=== PATIENT | male | born 1960 | race Caucasian/White ===

== ENCOUNTER 2019-11-30 11:15 | Inpatient (IN) | payer MEDICAID ==
[2019-11-30] VITALS (10 sets, daily range): BP systolic 90–149; BP diastolic 46–77; Ht 175.3 cm; Wt 68.2 kg
[~2019-11-30] VITALS: Ht 175.3 cm; Wt 68.2 kg
--- NOTE | ~2019-11-30 | HEMODYNAMI ---
PATIENT:GENARO GARCES MEDICAL RECORD: [id number] : 62 LOCATION:[facility].[address] [facility]# [id number] ADMISSION DATE: 11/30/19 Generatedon:12/01/201912:38 Patient name: GENARO GARCES Patient #: [id number] SSN: : 1960 Date of study: 12/01/2019 Page: Of Hemodynamic Procedure Report Patient Data Patient Demographics Procedure consent was obtained First Name: GENARO Gender: Male Last Name: DEZ : 1960 Patient #: [id number] Age: 59 year(s) Race: Unknown Additional ID: [id number] Contact details [address]: [address] [place] [address] State: [place] City: [place] Zip code: [address] Past Medical History Allergies: No known allergies Admission Admission Data Admission Date: 11/30/2019 Admission Time: 19:48 Room #: D2117 Lab Results Lab Result Date: 12/01/2019 Lab Result Time: 0:00 Biochemistry Name Units Result Min Max BUN mg/dl 32 --(----)-* 7 18 Creatinine mg/dl 1.3 --(---*)-- 0.6 1.3 eGFR ml/min 60 *-(----)-- 90 120 NONAFRICAN CBC Name Units Result Min Max Hematocrit % 44.8 --(*---)-- 42 54 Hemoglobin g/dl 14.8 --(-*--)-- 13.5 17.5 Procedure Procedure Types Cath Procedure Diagnostic Procedure LHC LHC w/Coronaries Procedure Description Procedure Date Procedure Date: 12/01/2019 Procedure Start Time: 12:24 Procedure End Time: 12:34 Procedure Staff Name Function Refugio Duval MD Performing Physician Ginette Wray RT Monitor Radha Nunez RT Scrub Qamar Verduzco RN Nurse Procedure Data Cath Procedure Fluoroscopy Diagnostic fluoroscopy Total fluoroscopy Time: 1 time: 1 min min Diagnostic fluoroscopy Total fluoroscopy dose: 91 dose: 91 mGy mGy Contrast Material Contrast Material Type Amount (ml) Isovue 300 58 Entry Location Entry Primary Successful Side Size Upsize Upsize Entry Closure Succes sful Closure Location (Fr) 1 (Fr) 2 (Fr) Remarks Device Remarks Femoral Right 5 Fr Exoseal artery Estimated blood loss: 5 ml Diagnostic catheters Device Type Used For End Catheter Placement MULTIPACK Pigtail 5 Fr Procedure catheter MULTIPACK JL 4.0 5Fr Procedure catheter MULTIPACK 3DRC 5Fr Procedure catheter Procedure Complications No complications Procedure Medications Medication Administration Route Dosage 0.9% NaCl I.V. 100 ml/hr Oxygen etCO2 Nasal cannula 2 l/min Heparin Flush Bag added to field 2 bags (1000units/500ml NS) Lidocaine 2% added to field 20 Cardizem 3 mg/hr (125mg/125ml NS) Versed I.V. 2 mg Fentanyl I.V. 100 mcg Cardizem 3 mg/hr (125mg/125ml NS) Fentanyl I.V. 50 mcg Hemodynamics Rest HGB: 14.8 (g/dl) Heart Rate: 109 (bpm) Snapshots Pre Cath Intra NCS Post Cath Vital Signs Time Heart Resp SPO2 etCO2 NIBP (mmHg) Rhythm Pain Sedation Rate (ipm) (%) (mmHg) Status Level (bpm) 12:03:33 110 19 90 0 139/104(125) A-Fib 0 (11) 10(A) , No pain 12:07:36 107 20 0 15.9 128/101(122) A-Fib 0 (11) 10(A) , No pain 12:11:36 137 28 95 12.1 126/103(114) A-Fib 0 (11) 10(A) , No pain 12:15:36 98 19 95 16.6 120/104(116) A-Fib 0 (11) 10(A) , No pain 12:19:33 93 17 92 20.4 122/91(115) A-Fib 0 (11) 10(A) , No pain 12:24:20 110 16 92 21.9 113/84(106) A-Fib 0 (11) 9(A) , No pain 12:28:13 122 15 91 26.5 123/95(101) A-Fib 0 (11) 9(A) , No pain 12:32:11 117 14 91 24.9 117/97(108) A-Fib 0 (11) 9(A) , No pain Medications Time Medication Route Dose Verified Delivered Reason Notes E ffectiveness by by 12:12:13 0.9% NaCl I.V. 100 Qamar Qamar Per ml/hr Luba Verduzco physician RN RN 12:12:21 Oxygen etCO2 2 Qamar Qamar for low 02 Nasal l/min Lorigan Lorigan sats cannula RN RN 12:12:31 Heparin Flush added to 2 Qamar Qamar used for Bag field bags Lorigan Lorigan procedure (1000units/500ml RN RN NS) 12:12:41 Lidocaine 2% added to 20ml Qamar Qamar for local field vial Lorigan Lorigan anesthetic RN RN 12:13:15 Cardizem I.V. drip 3 Qamar Qamar for (125mg/125ml NS) (infusing mg/hr Lorigan Lorigan arrhythmia upon RN RN arrival) 12:25:04 Versed I.V. 2 mg Qamar Qamar for Lorigan Lorigan sedation RN RN 12:25:12 Fentanyl I.V. 100 Qamar Qamar for mcg Lorigan Lorigan sedation RN RN 12:25:43 Cardizem I.V. drip 3 Qamar Qamar for (125mg/125ml NS) turned mg/hr Lorigan Lorigan arrhythmia off RN RN 12:26:20 Fentanyl I.V. 50 Qamar Qamar for mcg Lorigan Lorigan sedation RN outpatient therapist Log Time Note 11:37:39 Informed consent obtained and on chart 11:37:59 Time tracking: Regular hours (M-F 7:00 - 5:00) 11:38:01 Plan of Care:Hemodynamics will remain stable., Cardiac rhythm will remain stable., Comfort level will be maintained., Respiratory function will remain adequate., Patient/ family verbilizes understanding of procedure., Procedure tolerated without complication., Recovers from procedure without complications.. 11:38:04 Procedure Status Urgent Heart Cath (IP). 11:41:07 H&P Date Dictated: 12/01/2019 New H&P dictated by physician.. 11:46:38 Lab Result : BUN 32 mg/dl 11:46:38 Lab Result : Creatinine 1.3 mg/dl 11:46:38 Lab Result : eGFR NONAFRICAN 60 ml/min 11:46:38 Lab Result : Hemoglobin 14.8 g/dl 11:46:38 Lab Result : Hematocrit 44.8 % 11:48:37 Risk of Mortality: .1 11:48:40 Risk of blood transfusion: .4 11:48:42 Risk of TERRI: .4 11:48:47 Stress Test: no; N/A ? 11:48:55 Qamar Verduzco RN sent for patient. Start room use. 12:02:28 Patient received from Med II to CCL 3 Alert and oriented. Tansferred to table in Supine position. 12:02:29 Warm blankets applied, and britt hugger turned on for patient comfort. 12:02:30 Correct patient and procedure confirmed by team. 12:02:31 ECG and BP/O2 sat monitors applied to patient. 12:02:31 Vital chart was started 12:02:33 Baseline sample Acquired. 12:02:38 Rhythm: atrial fibrillation 12:02:39 Full Disclosure recording started 12:02:40 Pre-procedure instructions explained to patient. 12:02:41 Pre-op teaching completed and patient verbalized understanding. 12:02:45 Family in patients room. 12:02:46 Patient NPO since Midnight. 12:02:51 Patient allergic to No known allergies 12:03:01 Is the patient allergic to Iodine/contrast media? No. 12:03:03 Is patient on blood thinner?Yes 12:03:06 ACC The patient was administered the following blood thiners within the last 24 hours: Xarelto 12:03:08 Patient diabetic? No. 12:03:11 Previous problem with sedation/anesthesia? No ? 12:03:13 Snore? Yes 12:03:14 Sleep apnea? No 12:03:15 Deviated septum? No 12:03:16 Opens mouth fully? Yes 12:03:16 Sticks out tongue? Yes 12:03:18 Airway obstruction? No ? 12:03:21 Dentures? No ? 12:03:30 IV right antecubital D/C'd due to infiltration. 12:03:42 IV started by Qamar Verduzco RN inleft antecubital with a 22 gauge IV catheter with 0.9% NaCl at KVO. 12:03:48 Pre procedure: right dorsailis pedis pulse 1+ Palpable, but thready & weak; easily obliterated 12:03:51 Patient pain scale 0/10 ?. 12:03:55 Lab results completed and on chart. 12:04:00 Right groin area was prepped with chlora-prep and draped in sterile fashion 12:04:09 RADIAL PULSE TOO WEAK. 12:04:15 Alarms reviewed by R. N. 12:04:16 Sharps counted by scrub and verified by R.N. 12:04:18 Use device set Femoral Dx 12:04:18 ACIST Syringe (03016) opened to sterile field. 12:04:19 Bag Decanter (2002S) opened to sterile field. 12:04:20 ACIST Hand Control (07855) opened to sterile field. 12:04:21 ACIST Manifold (52029) opened to sterile field. 12:04:21 Tegaderm 4 x 4 (1626W) opened to sterile field. 12:04:22 Medline Cath Pack (UKSL40188) opened to sterile field. 12:04:23 DIAGNOSTIC Multipack 5Fr catheter set (IF2332) opened to sterile field. 12:04:24 SHEATH 5FR [place] (GDH378) opened to sterile field. 12:04:24 EMERALD Guide Wire (967-856) opened to sterile field. 12:12:13 0.9% NaCl 100 ml/hr I.V. was administered by Qamar Verduzco RN; Per physician; Verbal order read back and verified. 12:12:21 Oxygen 2 l/min etCO2 Nasal cannula was administered by Qamar Verduzco RN; for low 02 sats; Verbal order read back and verified. 12:12:31 Heparin Flush Bag (1000units/500ml NS) 2 bags added to field was administered by Qamar Verduzco RN; used for procedure; Verbal order read back and verified. 12:12:41 Lidocaine 2% 20ml vial added to field was administered by Qamar Verduzco RN; for local anesthetic; Verbal order read back and verified. 12:13:15 Cardizem (125mg/125ml NS) 3 mg/hr I.V. drip (infusing upon arrival) was administered by Qamar Verduzco RN; for arrhythmia; Verbal order read back and verified. 12:18:59 Zero performed for pressure channel P1 12:22:33 --------ALL STOP TIME OUT------ 12:22:33 Final Timeout: patient, procedure, and site verified with staff and physician. All members of the team are in agreement. 12::35 Right groin site verified by team. 12::40 Fire Safety Assessment: A--An alcohol-based skin anteseptic being used preoperatively., C--Open oxygen or nitrous oxide is being used., D--An ESU, laser, or fiber-optic light is being used. 12::45 Physical assessment completed. ASA score P 2 - A patient with mild systemic disease as per Refugio Duval MD. 12:22:48 2) 60-89 Mildly reduced kidney function, and other findings (as for stage 1) point to kidney disease. 12:22:51 Maximum allowable contrast dose (3.7 X eGFR X 0.75)167 ml. 12:22:54 Sedation plan: IV Moderate Sedation Medication:Versed, Fentanyl 12:24:16 Procedure started. 12:24:45 Local anesthetic to right femoral artery with Lidocaine 2% by Refugio Duval MD.INITIAL ACCESS ONLY 12:24:59 A 5 Fr sheath was inserted into the Right Femoral artery 12:25:04 Versed 2 mg I.V. was administered by Qamar Verduzco RN; for sedation; Verbal order read back and verified. 12:25:12 Fentanyl 100 mcg I.V. was administered by Qamar Verduzco RN; for sedation; Verbal order read back and verified. 12:25:39 A MULTIPACK Pigtail 5 Fr catheter was advanced over the wire and used for Procedure. 12:25:43 Cardizem (125mg/125ml NS) 3 mg/hr I.V. drip turned off was administered by Qamar Verduzco RN; for arrhythmia; Verbal order read back and verified. 12:25:44 LV gram done using VASQUEZ 12::46 Injector settings: Ml/sec: 10, Volume: 20, 12:26:01 EF : 30 % 12:26:06 Catheter removed. 12:26:11 A MULTIPACK JL 4.0 5Fr catheter was advanced over the wire and used for Procedure. 12:26:20 Fentanyl 50 mcg I.V. was administered by Qamar Verduzco RN; for sedation; Verbal order read back and verified. 12:27:10 LCA angiography performed. 12:27:40 Catheter removed. 12:27:46 A MULTIPACK 3DRC 5Fr catheter was advanced over the wire and used for Procedure. 12:28:35 RCA angiography performed. 12::36 Catheter removed. 12::43 EXOSEAL 5Fr (EX500) opened to sterile field. 12:29:04 Sheath removed intact; hemostasis achieved with Exoseal to the Right Femoral artery. 12:29:12 Procedure ended.(Physican Out) 12:30:14 Fluoroscopy time 01.00 minutes. 12:30:18 Fluoroscopy dose: 91 mGy 12:30:18 Flurop Dose total: 91 12:30:22 Dose Area Product 775 mGy/cm. 12:30:26 Contrast amount:Isovue 300 58ml. 12:30:28 Maximum allowable dose exceeded? No. 12:30:29 Sharps counted by scrub and verified by R.N. 12:30:31 Post-op/insertion site Right Femoral artery dressed using a 4 x 4 and Tegaderm. 12:30:34 Post-procedure physical assessment completed. ASA score P 2 - A patient with mild systemic disease as per Refugio Duval MD. 12:30:37 Post procedure rhythm: atrial fibrillation 12:30:40 Estimated blood loss: 5 ml 12:30:41 Post procedure instruction explained to patient.Patient verbalizes understanding. 12:30:42 Patient needs reinforcement of post procedure teaching. 12:31:44 Procedure and supply charges have been captured, reviewed, submitted and are correct. 12::46 Procedure Complication : No complications 12:31:49 [facility] Findings: mild to moderate CAD (<70%) 12:31:51 Operative report dictated upon procedure completion. 12:31:51 See physician's report for complete and final results. 12:34:15 Vital chart was stopped 12:34:18 Report given to Med II. 12:34:21 Patient transfered to Med II with Bed. 12:34:23 Procedure ended. 12::23 Full Disclosure recording stopped 12:34:28 End room use (Document Last) 12:37:24 End room use (Document Last) 12:38:25 End room use (Document Last) Device Usage Item Name Manufacture Quantity Catalog Hospital Part Current Minimal L ot# / Number Charge Number Stock Stock Serial# Code [place] [address] 24253 216279 804005 [id number] 20 Syringe Medical (46438) Systems Inc Bag Microtek 1 207241 60136 735416 5 Decanter Medical Inc. () ACIST Hand Acist 1 10710 982041 070974 627053 5 Control Medical (14695) Systems Inc ACIST Acist 1 67801 033807 625251 937765 5 Manifold Medical (38373) Systems Inc Tegaderm 4 3M 1 1626W 713026 099109 226605 5 x 4 (1626W) Medline Medline 1 [id number] 096192 54184 653874 5 Cath Pack ([id number]) DIAGNOSTIC Cardinal 1 CF2562 513762 16328 175377 30 Multipack Health 5Fr catheter set (NE5183) SHEATH 5FR Terumo 1 LKY596 336806 417851 113633 5 [place] (GDC312) EMERALD Cardinal 1 502-000 771049 938346 584566 5 Guide Wire Health (418-851) MULTIPACK Cardinal 1 310759 5 Pigtail 5 Health Fr catheter MULTIPACK Cardinal 1 139429 5 JL 4.0 5Fr Health catheter MULTIPACK Cardinal 1 091426 5 3DRC 5Fr Health catheter EXOSEAL 5Fr Cardinal 1 EX500 420846 963382 009558 10 (EX500) Health Signature Audit [place] Stage Time Signature Unsigned Intra-Procedure 12/01/2019 Ginette Wray 12:37:24 PM RT(R) Intra-Procedure 12/01/2019 Qamar 12:38:25 PM Luba DUNCAN Intra-Procedure 12/01/2019 Refugio Duval 12:38:41 PM [place] [id number] [place] [address]
[2019-11-30] MEDS ORDERED: PAXIL10 MG PO (11:22)
[2019-11-30] MEDS ORDERED: XARELTO20 MG PO (11:27)
[2019-11-30] MEDS ORDERED: LISINOPRIL10 MG PO (11:33)
[2019-11-30] MEDS ORDERED: PROTONIX20 MG PO (11:33)
[2019-11-30] MEDS ORDERED: KLOR-CON M2020 MEQ PO (11:34)
[2019-11-30] MEDS ORDERED: ALDACTONE25 MG PO (11:34)
[2019-11-30] MEDS ORDERED: LANOXIN125 MCG PO (11:35)
[2019-11-30 12:12] LABS: BASOPHILS 0.3 % (0-2); CALC OSMOLALITY 280 mosm/kg (275-300); CALCIUM 7.9 mg/dL (8.5-10.1); CARBON DIOXIDE 23.8 mmol/L (21.0-32.0); CHLORIDE - SERUM 104 mmol/L (98-107); CREATININE - SERUM 1.3 mg/dL (0.6-1.3); GLUCOSE 102 mg/dL (74-106); HEMATOCRIT 44.8 % (42.0-54.0); HEMOGLOBIN 14.8 g/dL (13.5-17.5); IMMATURE GRANULOCYTES 0.3 % (0-5); LYMPHOCYTES 20.2 % (15-50); MCH 30.7 pg (26.0-34.0); MCV 92.9 fL (80.0-100.0); MEAN PLATELET VOLUME 13.1 fL (7.4-10.4); MONOCYTES 11.6 % (2-11); NEUTROPHILS 66.6 % (40-80); PLATELET COUNT 115 10x3/uL (130-400); RBC 4.82 10x6/uL (4.20-6.10); RDW 16.5 % (11.5-14.5); SODIUM 137 mmol/L (136-145); UREA NITROGEN 32 mg/dL (7-18); WBC 7.7 10x3/uL (4.8-10.8); eGFR NON AFRICAN AMERICAN 60 mL/min (90-120)
[2019-11-30 12:31] LABS: APTT 30.3 SECONDS (22.8-39.4); INR 1.47 (0.85-1.17); PROTIME 17.2 SECONDS (11.6-15.0)
[2019-11-30 12:34] LABS: ALKALINE PHOSPHATASE 67 U/L (46-116); ALT (SGPT) 190 U/L (10-68); BILIRUBIN - TOTAL 1.49 mg/dL (0.2-1.3); CKMB 9.3 U/L (0.0-3.6); CREATINE KINASE 400 UL (21-232); MAGNESIUM - SERUM 2.2 mg/dL (1.8-2.4); PROTEIN - SERUM 5.8 g/dL (6.4-8.2)
[2019-11-30 12:42] LABS: TROPONIN-I 1.569 ng/mL (0.000-0.060)
--- NOTE | 2019-11-30 13:00 | NUR ---
CASE MANAGEMENT STATED HOLDING PT D/T NO BEDS AVAILABLE AT THIS TIME
--- NOTE | 2019-11-30 13:21 | NUR ---
SISTER TAKING PT INDY HOME WITH HER AND LEAVING PT CELL PHONE
--- NOTE | 2019-11-30 14:29 | NUR ---
PT RESTING NO DISTRESS NOTED.
--- NOTE | 2019-11-30 14:59 | NUR ---
URINAL GIVEN TO PT
--- NOTE | 2019-11-30 15:19 | NUR ---
PT BLOOD PRESSURE 90/63 HR 77. DECREASED CARDIZEM TO 5MG/HR
--- NOTE | 2019-11-30 15:53 | NUR ---
CARDIZEM DECREASED TO 3MG/HR D/T HR 81 BP 81/54
--- NOTE | 2019-11-30 16:56 | NUR ---
CALLED TO CHECK ON STATUS OF ROOM 211 BEING CLEANED AND WAS TOLD EVS HAS NOT STARTED ON CLEANING ROOM YET.
--- NOTE | 2019-11-30 17:40 | NUR ---
TRIED TO CALL REPORT WAS TOLD WOULD HAVE TO BE CALLED BACK
--- NOTE | 2019-11-30 18:45 | NUR ---
CARDIZEM STOPPED IN ED WHEN TRANSPORTED TO FLOOR. DRIP CONTINUED ON FLOOR
--- NOTE | 2019-11-30 18:53 | NUR ---
COMPUTER WILL NOT LET ME DEPART PT D/T PT HAS BEEN ADMITTED FOR SEVERAL HOURS WAITING ON BED.
--- NOTE | 2019-11-30 19:30 | NUR ---
WHEN DOING PATIENT MED. REC. PATIENT DISCLOSED THAT HE WAS ABLE TO GET IS MEDICATION FOR APPROX. A MONTH. HE WAS UNABLE TO DETERMINE WHEN THE LAST TIME HE TOOK IS MEDICATIONS.
[2019-11-30 21:39] LABS: CKMB 6.9 U/L (0.0-3.6); CREATINE KINASE 332 UL (21-232)
[2019-11-30 21:40] LABS: TROPONIN-I 1.706 ng/mL (0.000-0.060)
[2019-12-01] VITALS: BP 112/66
[2019-12-01 02:43] LABS: BASOPHILS 0.1 % (0-2); EOSINOPHILS 2.2 % (0-7); HEMATOCRIT 42.4 % (42.0-54.0); HEMOGLOBIN 14.1 g/dL (13.5-17.5); IMMATURE GRANULOCYTES 0.1 % (0-5); LYMPHOCYTES 26.8 % (15-50); MCH 30.8 pg (26.0-34.0); MCHC 33.3 g/dL (31.0-37.0); MCV 92.6 fL (80.0-100.0); MEAN PLATELET VOLUME 11.9 fL (7.4-10.4); MONOCYTES 11.3 % (2-11); NEUTROPHILS 59.5 % (40-80); PLATELET COUNT 116 10x3/uL (130-400); RBC 4.58 10x6/uL (4.20-6.10); RDW 16.7 % (11.5-14.5); WBC 7.3 10x3/uL (4.8-10.8)
[2019-12-01 03:23] LABS: ALBUMIN 2.9 g/dL (3.4-5.0); ALKALINE PHOSPHATASE 80 U/L (46-116); ALT (SGPT) 167 U/L (10-68); CALC OSMOLALITY 284 mosm/kg (275-300); CALCIUM 8.3 mg/dL (8.5-10.1); CARBON DIOXIDE 25.1 mmol/L (21.0-32.0); CHLORIDE - SERUM 106 mmol/L (98-107); CREATINE KINASE 286 UL (21-232); CREATININE - SERUM 1.4 mg/dL (0.6-1.3); GLUCOSE 99 mg/dL (74-106); POTASSIUM - SERUM 4.4 mmol/L (3.5-5.1); SODIUM 139 mmol/L (136-145); UREA NITROGEN 31 mg/dL (7-18); eGFR NON AFRICAN AMERICAN 55 mL/min (90-120)
[2019-12-01 03:24] LABS: TROPONIN-I 1.666 ng/mL (0.000-0.060)
[2019-12-01 05:03] VITALS: BP 119/75
[2019-12-01 08:00] VITALS: BP 115/87
--- NOTE | 2019-12-01 11:51 | NUR ---
PRE-OPS GIVEN. TO JOINER HELPER BY BED.
[2019-12-01 12:23] VITALS: BP 121/95
--- NOTE | 2019-12-01 12:38 | HP ---
PATIENT: GENARO GARCES MEDICAL RECORD: [id number] ACCOUNT: [id number] LOCATION:[address] : 62 ADMISSION DATE: 11/30/19 PCP: No PCP HISTORY AND PHYSICAL EXAMINATION DIAGNOSES: 1. Non-Q-wave myocardial infarction. 2. Chronic atrial fibrillation. 3. Hypertension. 4. Previous history of hepatitis C. 5. Shortness of breath, dyspnea on exertion. HISTORY OF PRESENT ILLNESS: This is a gentleman with no history of ischemic heart disease, history of chronic atrial fibrillation, who has rate controlled on digoxin, history of hypertension, on lisinopril. For the past week, he has been having chest pain. His troponin is positive for non-Q-wave myocardial infarction. PHYSICAL EXAMINATION: CONSTITUTIONAL/GENERAL APPEARANCE: Well nourished, well developed, appears stated age. EYES: Lids and conjunctivae noninjected. No discharge. No pallor. ENT: Lips within normal limit. No cyanosis. No pallor. NECK: Carotid arteries, bilateral normal upstroke. No bruits. No thrills. No jugular venous pressure or distention. CERVICAL LYMPH NODES: Nontender. Nonenlarged. THYROID: Not enlarged. No nodules. CARDIOVASCULAR: Precordial exam, nondisplaced. No heaves or pericardial thrills. Rate and rhythm, regular. Heart sounds, normal S1, normal S2. No S3, no gallop, no rub. Systolic murmur, not heard. Diastolic murmur, not heard. RESPIRATORY: Respiratory effort, unlabored. Normal curvature. No thoracic deformity. No chest wall tenderness. Percussion, resonant. Auscultation, clear. No wheezes, no rales, no rhonchi. ABDOMEN: Soft, nondistended, nontender. No abdominal pain, no vomiting and normal appetite. MUSCULOSKELETAL: No joint tenderness, normal gait, normal tone. SKIN: Warm and dry. OVERALL IMPRESSION: Non-Q-wave myocardial infarction. We will proceed with coronary angiography in the a.m. Get an echocardiogram today and load him with Plavix today. TRANSINT:[id number] Voice Confirmation ID: [id number] DOCUMENT ID: [id number] JORGE LUIS EAST MD at 1238 CC: [id number] DICTATION DATE: 11/30/19 1209 REPORTING COORDINATOR: 11/30/19 1253 ADM IN [facility] [address] [id number]
--- NOTE | 2019-12-01 12:59 | NUR ---
BACK FROM ACCESS COORDINATOR. VS WNL. RIGHT GROIN STABLE WITHOUT BLEEDING OR HEMATOMA NOTED. WILL MONITOR.
--- NOTE | 2019-12-01 13:24 | NUR ---
TELEMETRY UCAF HR 142. WILL MONITOR.
[2019-12-01] MEDS ORDERED: TOPROL XL50 MG PO (13:36)
--- NOTE | 2019-12-01 14:12 | NUR ---
HR CALLED TO DR. EAST. NEW ORDERS GIVEN.
--- NOTE | 2019-12-01 14:56 | NUR ---
BR REST UP. GROIN STABLE. OK TO DC PER DR. EAST AFTER SECOND DOSE TOPROL XL GIVEN.
--- NOTE | 2019-12-01 15:24 | NUR ---
IV AND TELEMETRY DCD. DC PLANS GIVEN. UNDERSTANDING VOICED. ESCORTED TO CAR BY W/C.
--- NOTE | 2019-12-01 17:20 | MORECARE ---
CASE MANAGEMENT DISCHARGE SUMMARY PATIENT: GENARO GARCES UNIT: [id number] ADM DATE: 11/30/19 AGE: 59 : 62 SEX: M ROOM/BED: D.2250 AUTHOR: YADY,DOC PHYSICIAN: REFERRING PHYSICIAN: JORGE LUIS EAST MD DATE OF SERVICE: 12/01/19 Discharge Plan Patient Name: GENARO GARCES Facility: [facility]:[place] : 1960 Planned Disposition: Home Anticipated Discharge Date: 12/01/19 Discharge Date: 12/01/2019 Expected LOS: 1 Initial Reviewer: [email or web address] Initial Review Date: 12/01/2019 Generated: 12/01/19 6:20 pm DCP- Discharge Planning Updated by [email or web address]: Alisha Morales on 11/30/19 5:[address] CM met with patient to discuss initial discharge planning. Patient is in agreement to proceed with assessment with his sister present. Verified patient's address and telephone number. Patient is alert/oriented. Stairs/steps: 15 w/rails to his apartment. Patient lives alone. PCP: [facility]. [facility] Patient states they have been able to obtain all of their prescribed medications. Patient lives alone. HHS: No. DME: No. Patient gives permission to speak with family members/care givers. Emergency contact: Amy Seymour (sister) unknown telephone number. Patient is Independent with all ADL's, medication management. CM discussed the availability of HH, Rehab, DME services. States he might be interested in HHS, feels safe returning to his previous living arrangement. Patient denies being hospitalized within the past 30 days. Patient denies the use of community resources [employer]USTRIAL [employer]UCK [employer]. Transportation at time of discharge: Amy Seymour (sister) unknown number. CM will assist as needed PRN with dc needs/plans. DCPIA - Discharge Planning Initial Assessment Updated by [email or web address]: Krystian Mercado on 12/01/19 5:18 pm * Is the patient Alert and Oriented? Yes * How many steps to enter\exit or inside your home? -I 20-I * PCP DR. FAVIO MADISON, [facility] * Pharmacy [facility] * Preadmission Environment Home Alone * ADLs Independent * Equipment Nebulizer * Other Equipment NO MEDICAL EQUIPMENT PROVIDER PREFERENCE * List name and contact numbers for known caregivers / representatives who currently or will assist patient after discharge: YSABEL SALINAS, , * Verbal permission to speak to the caregivers and representatives has been obtained from the patient. Yes * Community resources currently utilized None * Please name any agencies selected above. NONE * Additional services required to return to the preadmission environment? No * Can the patient safely return to the preadmission environment? Yes * Has this patient been hospitalized within the prior 30 days at any hospital? No Patient Name: GENARO GARCES Page [id number] at 1720 All edits/amendments must be made on the electronic document DICTATION DATE: 12/01/191719 CELL TENDER: LATOYA 12/01/191719 RPT#: [id number] DC DATE:12/01/19 STATUS: DIS IN [facility] [address] [place] [address] END OF REPORT
--- NOTE | 2019-12-01 17:27 | MORECARE ---
CASE MANAGEMENT DISCHARGE SUMMARY PATIENT: GENARO GARCES UNIT: [id number] ADM DATE: 11/30/19 AGE: 59 : 62 SEX: M ROOM/BED: D.8878 AUTHOR: YADY,DOC PHYSICIAN: REFERRING PHYSICIAN: JORGE LUIS EAST MD DATE OF SERVICE: 12/01/19 Discharge Plan Patient Name: GENARO GARCES Facility: [facility]:[place] : 1960 Planned Disposition: Home Anticipated Discharge Date: 12/01/19 Discharge Date: 12/01/2019 Expected LOS: 1 Initial Reviewer: [email or web address] Initial Review Date: 12/01/2019 Generated: 12/01/19 6:27 pm Comments DCP- Discharge Planning Updated by [email or web address]: Krystian Mercado on 12/01/19 4:[address] Patient Name: GENARO GARCES Admission Status: ER Accout number: [id number] Admission Date: 11-30-2019 : 1960 Admission Diagnosis: Attending: MARIA LUISA EAST Current LOS: 1 Anticipated DC Date: 12-01-2019 Planned Disposition: Home Primary Insurance: MEDICAID [place] Discharge Planning Comments: CM MET WITH PT AND SISTER IN ROOM TO DISCUSS DISCHARGE PLANNING AND NEEDS. GENARO GARCES provided verbal consent to discuss current and ongoing needs with/in the presence of: YSABEL KINGSLEYEVY, SISTER. PT REPORTS LIVING AT HOME INDEPENDENTLY AND ALONE. PT HAS NEBULIZER WITH NO MEDICAL EQUIPMENT PROVIDER PREFERENCE. PT HAS NO OUTSIDE SERVICES ASSISTING IN THE HOME. CM DISCUSSED AVAILABILITY OF HOME HEALTH, REHAB SERVICES AND MEDICAL EQUIPMENT. PT DENIES DISCHARGE NEEDS, REPORTS HIS SISTER WILL PICK HIM UP FOR DISCHARGE HOME. IMPORTANT MESSAGE FROM MEDICARE PROVIDED AND EXPLAINED. Slat Twister: Krystian Mercado DCP- Discharge Planning Updated by [email or web address]: Alisha Morales on 11/30/19 5:[address] CM met with patient to discuss initial discharge planning. Patient is in agreement to proceed with assessment with his sister present. Verified patient's address and telephone number. Patient is alert/oriented. Stairs/steps: 15 w/rails to his apartment. Patient lives alone. [facility]CP: [facility]. Pharmacy: [facility], [place]. Patient states they have been able to obtain all of their prescribed medications. Patient lives alone. HHS: No. DME: No. Patient gives permission to speak with family members/care givers. Emergency contact: Amy Seymour () unknown telephone number. Patient is Independent with all ADL's, medication management. CM discussed the availability of HH, Rehab, DME services. States he might be interested in HHS, feels safe returning to his previous living arrangement. Patient denies being hospitalized within the past 30 days. Patient denies the use of community resources EP TECH. Transportation at time of discharge: Amy Seymour () unknown number. CM will assist as needed PRN with dc needs/plans. DCPIA - Discharge Planning Initial Assessment Updated by [email or web address]: Krystian Mercado on 12/01/19 5:18 pm * Is the patient Alert and Oriented? Yes * How many steps to enter\exit or inside your home? -I -I * PCP DR. FAVIO MADISON, [facility] * Pharmacy [facility] * Preadmission Environment Home Alone * ADLs Independent * Equipment Nebulizer * Other Equipment NO MEDICAL EQUIPMENT PROVIDER PREFERENCE * List name and contact numbers for known caregivers / representatives who currently or will assist patient after discharge: YSABEL SALINAS, , * Verbal permission to speak to the caregivers and representatives has been obtained from the patient. Yes * Community resources currently utilized None * Please name any agencies selected above. NONE * Additional services required to return to the preadmission environment? No * Can the patient safely return to the preadmission environment? Yes * Has this patient been hospitalized within the prior 30 days at any hospital? No Last DP export: 12/01/19 4:20 pm Patient Name: GENARO GARCES Page [id number] at 1727 All edits/amendments must be made on the electronic document DICTATION DATE: 12/01/191726 MERCHANDISE PICKUP/RECEIVING ASSOCIATE: LATOYA 12/01/191726 RPT#: [id number] DC DATE:12/01/19 STATUS: DIS IN [facility] [address] [place] [address] END OF REPORT
--- NOTE | 2019-12-02 14:04 | OP ---
PATIENT NAME: GENARO GARCES MEDICAL RECORD: [id number] :62 LOCATION:D.M2 D.2117 ADMISSION DATE:11/30/19 SURGEON: JORGE LUIS EAST MD DATE OF OPERATION: 12/01/2019 PROCEDURES: 1. Left heart catheterization. 2. Selective coronary angiography. 3. Left ventriculogram. INDICATION: Non-Q-wave myocardial infarction. PROCEDURE IN DETAIL: After informed consent was obtained and after a detailed description of the risks, benefits as well as alternative therapies, the patient elected to proceed with angiogram and heart catheterization. The right femoral area was prepped and draped in normal sterile fashion. Right femoral artery was cannulated via modified Seldinger technique with placement of 5-Kosovan sheath. All catheters exchanged through this sheath. FINDINGS: The left ventriculogram was performed in standard 30-degree VASQUEZ view, reveals global hypokinesis, ejection fraction in the 25% range. SELECTIVE CORONARY ANGIOGRAPHY: Left main, left anterior descending, left circumflex, right coronary artery with mild irregularities, but no flow-limiting stenosis. OVERALL IMPRESSION: Nonischemic cardiomyopathy, atrial fibrillation out of control. Center medical management and treatment of the atrial fibrillation, heart rate and the cardiomyopathy. TRANSINT:[id number] Voice Confirmation ID: [id number] DOCUMENT ID: [id number] JORGE LUIS EAST MD at 1404 CC: [id number] DICTATION DATE: 12/01/19 1238 KNOWLEDGE MANAGEMENT CONSULTANT: 12/01/196 DIS IN 12/01/19 [id number] [place] [address]
--- NOTE | 2019-12-02 14:04 | EC ---
PATIENT:GENARO GARCES DATE OF SERVICE: 11/30/19 SEX: M MEDICAL RECORD: [id number] DATE OF : 62 LOCATION:D. D.211 AGE OF PATIENT: 59 ADMISSION DATE: 11/30/19 REFERRING PHYSICIAN: INTERPRETING PHYSICIAN: JORGE LUIS DUVAL MD ECHOCARDIOGRAM REPORT ECHO CHARGES 4 ECHO COMPLETE Date: 11/30/19 CLINICAL DIAGNOSIS: CHF/SOB/LOWER EDEMA ECHOCARDIOGRAPHIC MEASUREMENTS (adult normal given) AC root (d.<3.7cm) 4.0 cm LV Septum d (<1.2 cm> 1.0 cm Valve Excursion 2.0 cm LV Septum (systole) 1.1 cm Left Atria (s.<4.0cm> 4.4 cm LVPW d(<1.2cm) 1.1 cm RV (d.<2.3cm) 5.0 cm LVPW (sytole) 1.5 cm LV diastole(<5.6CM) 6.2 cm MV E-F(>70mm/sec) cm LV systole 5.3 cm LVOT Diameter 2.0 cm MV exc.(>10mm) 1.5 cm Est.ejection fraction (50-75%) % DOPPLER: LVIT cm/sec A 31.0 cm/sec E 125.0 cm/sec LA cm/sec RVSP 45 mmHg LVOT 139 cm/sec AOP1/2T m/s Asc. Ao 158 cm/sec RVOT 66 cm/sec RA cm/sec PA 84 cm/sec AV Gradient Peak 9.95 mmHg AV Mean 5.26 mmHg AV Area 2.4 cm MV Gradient Peak 9.45 mmHg MV Mean 3.98 mmHg MV Area cm COMMENTS: Trimming Inspector: 2 SASCHA DAVIS Checkman: 1 Dr. Duval TAPE# PACS Pericardial Effusion N DATE OF SERVICE: ECHOCARDIOGRAM FINDINGS: 1. Left ventricular chamber size is dilated. Left ventricular systolic function is significantly reduced at 25% to 30%. 2. Left atrium is enlarged at 4.4 cm. Right atrium and right ventricle chamber sizes are as well mildly dilated. 3. Valvular structures have normal structure and motion. ECHOCARDIOGRAM REPORT [id number] GENARO GARCES 4. Doppler interrogation reveals moderate mitral regurgitation, moderate tricuspid regurgitation, no other valvular insufficiency or stenosis. Pulmonary systolic pressure is estimated at 45 mmHg. 5. No evidence of pericardial effusion or left ventricular thrombus. TRANSINT:[id number] Voice Confirmation ID: [id number] DOCUMENT ID: [id number] JORGE LUIS DUVAL MD at 1404 CC: [id number] DICTATION DATE: 12/01/19 1010 WAREHOUSE ADMINISTRATIVE ASSISTANT: 12/01/19 1309 DIS IN 12/01/19 [place] [id number] [place] [id number]
--- NOTE | 2019-12-02 14:04 | DS ---
PATIENT:GENARO PADILLA :62 MEDICAL RECORD: [id number] DISCHARGE SUMMARY ADMISSION DATE: 11/30/19 DISCHARGE DATE: 12/01/19 DATE OF SERVICE: 12/01/2019. DIAGNOSES: 1. Non-Q-wave myocardial infarction secondary to atrial fibrillation. 2. Atrial fibrillation, chronic with rapid ventricular response. 3. Hypertension. 4. Hyperlipidemia. HOSPITAL COURSE: Mr. Padilla presents with shortness of breath, found to have his atrial fibrillation with out of control rate, mildly elevated troponin; however, coronary angiography revealed no significant coronary artery disease. His digoxin was continued. His lisinopril, he was on, was discontinued, was replaced with Toprol-XL 50. He will follow up with [facility] in 1 month. TRANSINT:[id number] Voice Confirmation ID: [id number] DOCUMENT ID: [id number] JORGE LUIS EAST MD at 1404 CC: [id number] DICTATION DATE: 12/01/19 1237 HOOK AND EYE SEWING MACHINE OPERATOR: 12/02/19 0752 DIS IN 12/01/19 [id number] [place] [address]
== END 2019-12-01 15:41 | disposition home or self-care (01) | DRG 282 ==
LOC: D.ER 11:15 → D.CLR 11:15 → D.CATH 11:15 → EDSTATUS 12:00 → D.CLR 12:07 → D.M2 19:33 → D.CATH 19:47 → D.M2 19:48
PROVIDERS: Family Medicine; ADMIT Internal Medicine Interventional Cardiology; ATTEND Internal Medicine Interventional Cardiology
PROC: B2151ZZ Fluoroscopy of Left Heart using Low Osmolar Contrast (ICD-10-PCS; 2019-12-01)
PROC: 4A023N7 Measurement of Cardiac Sampling and Pressure, Left Heart, Percutaneous Approach (ICD-10-PCS; 2019-12-01)
PROC: B2111ZZ Fluoroscopy of Multiple Coronary Arteries using Low Osmolar Contrast (ICD-10-PCS; principal; 2019-12-01 12:00)
DX: I48.20 Chronic atrial fibrillation, unspecified (principal); I21.4 Non-ST elevation (NSTEMI) myocardial infarction; I42.9 Cardiomyopathy, unspecified; I10 Essential (primary) hypertension; E78.5 Hyperlipidemia, unspecified; Z86.19 Personal history of other infectious and parasitic diseases